=== PATIENT | male | born 1975 | race Two or more races ===

== ENCOUNTER 2018-01-14 14:08 | Inpatient (IN) | payer OTHER ==
[~2018-01-14] VITALS: Ht 170.2 cm; Wt 95.1 kg
[2018-01-14 17:05] LABS: Basophils # (auto) 0.1 uL; Basophils % (auto) 0.5 % (0.0-2.0); Eosinophils # (auto) 0 uL; Hematocrit 47.9 % (41.0-53.0); Hemoglobin 16.5 g/dL (13.5-17.5); Lymphocytes # (auto) 1.4 uL; Lymphocytes % (auto) 8.9 % (10.0-50.0); Mean Corpuscular Hemoglobin 29.6 pg (28.0-32.0); Mean Corpuscular Hgb Conc. 34.4 g/dL (32.0-36.0); Mean Corpuscular Volume 86.2 fL (80.0-100.0); Monocytes # (auto) 0.7 uL; Monocytes % (auto) 4.7 % (0.0-12.0); Neutrophils # (auto) 13.3 uL; Neutrophils % (auto) 85.9 % (37.0-80.0); Nucleated Red Blood Cells % 0.1 %; Platelet Count (auto) 261 10^3/uL (140-450); Red Blood Cells 5.56 10^6/uL (4.5-5.90); White Blood Cell 15.5 10^3/uL (4.4-10.8)
[2018-01-14 17:26] LABS: Albumin 4.4 g/dL (3.4-5.0); BUN/Creatinine Ratio 17.9; Bilirubin, Total 0.8 mg/dL (0.2-1.0); Calcium 9.3 mg/dL (8.5-10.1); Potassium 4.7 mmol/L (3.5-5.1)
[2018-01-14] MEDS ORDERED: SODIUM CHLORIDE 0.9% 1,000 ML IVB ONE (18:02)
[2018-01-14 18:36] LABS: INR 0.97 (0.9-1.15); Partial Thromboplastin Time 23.6 sec (22.64-33.71); Prothrombin Time 10.6 sec (9.37-12.3)
[2018-01-14] MEDS ORDERED: cefTRIAXone 1GM/10ml IVPUSH 10 ML IV ONE (19:00)
[2018-01-14] MEDS ORDERED: TAMSULOSIN HYDROCHLORIDE 0.4 MG CAP PO ONE (19:00)
[2018-01-14] MEDS ORDERED: KETOROLAC TROMETH 30 MG/ML 1ML VIAL IV ONE (19:30)
[2018-01-14] MEDS ORDERED: PROMETHAZINE HCL 25 MG/ML 1ML IV ONE (19:30)
[2018-01-14] MEDS ORDERED: ONDANSETRON HCL 4 MG/2 ML VIAL IV PRN (20:45)
[2018-01-14] MEDS ORDERED: MORPHINE SULFATE 4 MG/ML SYR/VIAL IV PRN (20:45)
[2018-01-14] MEDS: SOD CHL 0.45% 1,000 ML IV SCH (21:13)
[2018-01-14 21:29] LABS: INR 0.98 (0.9-1.15); Partial Thromboplastin Time 22.9 sec (22.64-33.71); Prothrombin Time 10.7 sec (9.37-12.3)
[2018-01-14] MEDS: POTASSIUM CHL 10 Meq TABLET PO SCH (21:54)
[2018-01-14] MEDS: FUROSEMIDE 20 MG/2 ML VIAL IV SCH (21:54)
[2018-01-14 22:10] LABS: Urine Bacteria NONE SEEN /hpf (None Seen); Urine Blood Negative /uL (Negative); Urine Specific Gravity 1.009 (1.001-1.035); Urine WBC <1 /hpf (0 - 3)
[2018-01-15 05:58] LABS: Basophils # (auto) 0 uL; Basophils % (auto) 0.1 % (0.0-2.0); Eosinophils # (auto) 0 uL; Eosinophils % (auto) 0.4 % (0.0-7.0); Hemoglobin 14.9 g/dL (13.5-17.5); Lymphocytes # (auto) 1.9 uL; Lymphocytes % (auto) 19.6 % (10.0-50.0); Mean Corpuscular Hemoglobin 30.3 pg (28.0-32.0); Mean Corpuscular Hgb Conc. 34.6 g/dL (32.0-36.0); Mean Corpuscular Volume 87.5 fL (80.0-100.0); Monocytes # (auto) 0.6 uL; Monocytes % (auto) 6.2 % (0.0-12.0); Neutrophils # (auto) 7.3 uL; Neutrophils % (auto) 73.7 % (37.0-80.0); Nucleated Red Blood Cells % 0.2 %; Platelet Count (auto) 219 10^3/uL (140-450); Red Blood Cells 4.91 10^6/uL (4.5-5.90); Red Cell Distribution Width 13.3 % (11.8-14.3); White Blood Cell 9.9 10^3/uL (4.4-10.8)
[2018-01-15 06:17] LABS: Albumin 3.7 g/dL (3.4-5.0); BUN/Creatinine Ratio 19.3; Bilirubin, Total 0.9 mg/dL (0.2-1.0); Calcium 8.7 mg/dL (8.5-10.1); Potassium 4.7 mmol/L (3.5-5.1)
[2018-01-15] MEDS ORDERED: KETOROLAC TROMETH 30 MG/ML 1ML VIAL IV ONE (06:45)
[2018-01-15] MEDS: SOD CHL 0.45% 1,000 ML IV SCH ×2 (07:30→17:34)
[2018-01-15 09:00] VITALS: BP 119/79
[2018-01-15] MEDS: POTASSIUM CHL 10 Meq TABLET PO SCH (10:08)
[2018-01-15] MEDS: FUROSEMIDE 20 MG/2 ML VIAL IV SCH (10:08)
[2018-01-15 13:00] VITALS: BP 114/70
[2018-01-15] MEDS: SULFAMETHOX W/TRIMETH(800/160MG) DS TAB PO SCH ×2 (13:40→22:20)
[2018-01-15 15:25] LABS: Hepatitis B Core IgM Negative; Hepatitis B Surface Antigen Negative (Negative)
[2018-01-15 15:26] LABS: Hepatitis A Ab IgM Negative
[2018-01-15 15:32] LABS: Hepatitis C Antibody Positive (Negative)
[2018-01-15 16:55] VITALS: BP 125/80
[2018-01-15] MEDS ORDERED: TAMSULOSIN HYDROCHLORIDE 0.4 MG CAP PO SCH (18:00)
[2018-01-15] MEDS ORDERED: MANNITOL 20 % (20GM/100ML) 62.5 ML IV ONE (18:45)
[2018-01-15 23:04] VITALS: BP 127/76
[2018-01-16] MEDS: SOD CHL 0.45% 1,000 ML IV SCH (02:45)
[2018-01-16 05:34] VITALS: BP 141/81
[2018-01-16 06:11] LABS: Calcium 8.3 mg/dL (8.5-10.1); Potassium 4.6 mmol/L (3.5-5.1)
[2018-01-16 06:18] LABS: BUN/Creatinine Ratio 11.9
[2018-01-16 08:00] VITALS: BP 132/85
[2018-01-16 09:00] VITALS: BP 132/85
[2018-01-16] MEDS ORDERED: POTASSIUM CHL 10 Meq TABLET PO SCH (10:00)
[2018-01-16] MEDS ORDERED: FUROSEMIDE 20 MG/2 ML VIAL IV SCH (10:00)
[2018-01-16 11:22] VITALS: BP 132/85
[2018-01-16 13:00] VITALS: BP 129/80
== END 2018-01-16 14:00 | DRG 694 ==
LOC: ER 14:08 → OVERFLOW 14:09 → EEVIPCON 14:09 → TELE-E-ADS 01-15 08:49
PROVIDERS: ADMIT Internal Medicine; ATTEND Internal Medicine
DX: N13.2 Hydronephrosis with renal and ureteral calculous obstruction (principal); I10 Essential (primary) hypertension; R79.89 Other specified abnormal findings of blood chemistry; Z82.49 Family history of ischemic heart disease and other diseases of the circulatory system; Z87.891 Personal history of nicotine dependence
CPT/HCPCS: 36415; 71045; 74176; 80048; 80053; 80074; 81001; 82150; 83690; 83735; 83880; 85025; 85610; 85730; 96361; 96374; 96375; 96376; J1885; J2405